=== PATIENT | male | born 1995 | race Hispanic/Latino ===

== ENCOUNTER 2018-12-17 10:41 | Emergency (ER) | payer SELFPAY ==
--- NOTE | 2018-12-17 11:42 | ER ---
Nurse's Notes [facility] Name: Moisés King Age: 23 yrs Sex: Male : 1995 Arrival Date: 12/17/2018 Time: 10:41 Bed 16 Private MD: Diagnosis: Impacted cerumen, bilateral Presentation: 12/17 10:53 Presenting complaint: Patient states: Decreased hearing from right ear for 2 days. aj Denies pain. Transition of care: patient was not received from another setting of care. Onset of symptoms was December 15, 2018. Risk Assessment: Do you want to hurt yourself or someone else? Patient reports no desire to harm self or others. Initial Sepsis Screen: Does the patient meet any 2 criteria? No. Patient's initial sepsis screen is negative. Does the patient have a suspected source of infection? No. Patient's initial sepsis screen is negative. Care prior to arrival: None. 10:53 Method Of Arrival: Ambulatory aj 10:53 Acuity: ANNAMARIA 5 aj Triage Assessment: 10:54 General: Appears in no apparent distress. comfortable, Behavior is calm, cooperative, aj appropriate for age. Pain: Denies pain. EENT: Reports decreased hearing in right ear. Neuro: Level of Consciousness is awake, alert, obeys commands, Oriented to person, place, time, situation, Appropriate for age. Respiratory: Airway is patent Respiratory effort is even, unlabored, Respiratory pattern is regular, symmetrical. Derm: Skin is intact, is healthy with good turgor, Skin is pink, warm \T\ dry. normal. Historical: - Allergies: 10:54 No Known Allergies; aj - Immunization history:: Adult Immunizations up to date. - Social history:: Smoking status: Patient/guardian denies using tobacco. - Ebola Screening: : Patient negative for fever greater than or equal to 101.5 degrees Fahrenheit, and additional compatible Ebola Virus Disease symptoms Patient denies exposure to infectious person Patient denies travel to an Ebola-affected area in the 21 days before illness onset No symptoms or risks identified at this time. Vital Signs: 10:54 BP 150 / 79; Pulse 72; Resp 16; Temp 98.0; Pulse Ox 98% on R/A; Weight 72.57 kg; Height aj 6 ft. 0 in. (182.88 cm); 10:54 Body Mass Index 21.70 (72.57 kg, 182.88 cm) ED Course: 10:41 Patient arrived in ED. as 10:50 [facility]eta [facility]C [facility] snw 10:50 Mauro Mistry MD is Attending Physician. snw 10:53 Ness Silva, RN is Primary Nurse. aj 10:54 Triage completed. aj 10:54 Arm band placed on left wrist. Patient placed in an exam room. aj 11:41 Maryse Bourgeois MD is Referral Physician. snw Administered Medications: No medications were administered Outcome: 11:41 Discharge ordered by . snw 11:52 Patient left the ED. ph Signatures: Ness Silva, RN RN Geeta Keith FNP-C FNP-Csnw Fannie Gupta as Cassandra Farooq, RN RN ph
--- NOTE | 2018-12-17 11:42 | EDPHYS ---
Physician Documentation [facility] Name: Moisés King Age: 23 yrs Sex: Male : 1995 Arrival Date: 12/17/2018 Time: 10:41 Bed 16 Private MD: ED Physician Mauro Mistry HPI: 12/17 11:25 This 23 yrs old Male presents to ER via Ambulatory with complaints of Ear Pain.snw 11:25 The patient presents with hearing loss, partial. The complaints affect the right ear. snw Onset: The symptoms/episode began/occurred gradually, 4 day(s) ago. Associated signs and symptoms: Pertinent positives: sore throat. Severity of symptoms: At their worst the symptoms were mild. The patient has not experienced similar symptoms in the past. The patient has not recently seen a physician. Historical: - Allergies: 10:54 No Known Allergies; aj - Immunization history:: Adult Immunizations up to date. - Social history:: Smoking status: Patient/guardian denies using tobacco. - Ebola Screening: : Patient negative for fever greater than or equal to 101.5 degrees Fahrenheit, and additional compatible Ebola Virus Disease symptoms Patient denies exposure to infectious person Patient denies travel to an Ebola-affected area in the 21 days before illness onset No symptoms or risks identified at this time. ROS: 11:24 Constitutional: Negative for fever, chills, and weight loss, Eyes: Negative for injury, snw pain, redness, and discharge, Neck: Negative for injury, pain, and swelling, Cardiovascular: Negative for chest pain, palpitations, and edema, Respiratory: Negative for shortness of breath, cough, wheezing, and pleuritic chest pain, Abdomen/GI: Negative for abdominal pain, nausea, vomiting, diarrhea, and constipation, Back: Negative for injury and pain, : Negative for injury, bleeding, discharge, and swelling, MS/Extremity: Negative for injury and deformity, Skin: Negative for injury, rash, and discoloration, Neuro: Negative for headache, weakness, numbness, tingling, and seizure. 11:24 ENT: Positive for sore throat, clogged hearing/ears. Exam: 11:24 Constitutional: This is a well developed, well nourished patient who is awake, alert, snw and in no acute distress. Head/Face: Normocephalic, atraumatic. Eyes: Pupils equal round and reactive to light, extra-ocular motions intact. Lids and lashes normal. Conjunctiva and sclera are non-icteric and not injected. Cornea within normal limits. Periorbital areas with no swelling, redness, or edema. Neck: Trachea midline, no thyromegaly or masses palpated, and no cervical lymphadenopathy. Supple, full range of motion without nuchal rigidity, or vertebral point tenderness. No Meningismus. Chest/axilla: Normal chest wall appearance and motion. Nontender with no deformity. No lesions are appreciated. Cardiovascular: Regular rate and rhythm with a normal S1 and S2. No gallops, murmurs, or rubs. Normal PMI, no JVD. No pulse deficits. Respiratory: Lungs have equal breath sounds bilaterally, clear to auscultation and percussion. No rales, rhonchi or wheezes noted. No increased work of breathing, no retractions or nasal flaring. Abdomen/GI: Soft, non-tender, with normal bowel sounds. No distension or tympany. No guarding or rebound. No evidence of tenderness throughout. Back: No spinal tenderness. No costovertebral tenderness. Full range of motion. Skin: Warm, dry with normal turgor. Normal color with no rashes, no lesions, and no evidence of cellulitis. MS/ Extremity: Pulses equal, no cyanosis. Neurovascular intact. Full, normal range of motion. Neuro: Awake and alert, GCS 15, oriented to person, place, time, and situation. Cranial nerves II-XII grossly intact. Motor strength 5/5 in all extremities. Sensory grossly intact. Cerebellar exam normal. Normal gait. Psych: Awake, alert, with orientation to person, place and time. Behavior, mood, and affect are within normal limits. 11:24 ENT: TM's: not visable, because of cerumen, Nose: is normal, Mouth: is normal, Posterior pharynx: erythema, that is mild, Voice: is normal. Vital Signs: 10:54 BP 150 / 79; Pulse 72; Resp 16; Temp 98.0; Pulse Ox 98% on R/A; Weight 72.57 kg; Height aj 6 ft. 0 in. (182.88 cm); 10:54 Body Mass Index 21.70 (72.57 kg, 182.88 cm) [place] MDM: 10:50 Patient medically screened. snw 11:41 Data reviewed: vital signs, nurses notes. Data interpreted: Pulse oximetry: on room air snw is 98 %. Interpretation: normal. Counseling: I had a detailed discussion with the patient and/or guardian regarding: the historical points, exam findings, and any diagnostic results supporting the discharge/admit diagnosis, the presence of at least one elevated blood pressure reading (>120/80) during this emergency department visit, the need for outpatient follow up, to return to the emergency department if symptoms worsen or persist or if there are any questions or concerns that arise at home. Special discussion: I have referred the patient to see his PCP for further evaluation of high blood pressure. Based on the history and exam findings, there is no indication for further emergent testing or inpatient evaluation. I discussed with the patient/guardian the need to see the ENT specialist for further evaluation of the symptoms. I discussed with the patient/guardian the need to see the primary care provider for further evaluation of the symptoms. Administered Medications: No medications were administered Disposition: 12/18 07:41 Co-signature as Attending Physician, Mauro Mistry MD I agree with the assessment and kdr plan of care. Disposition: 12/17/18 11:41 Discharged to Home. Impression: Impacted cerumen, bilateral. - Condition is Stable. - Discharge Instructions: Earwax Buildup, Adult, Hypertension, Pharyngitis, Rehydration, Adult, Ear Irrigation. - Prescriptions for Debrox 6.5 % Otic drops - instill 10 drop by OTIC route 2 times per day; 1 bottle. - Work release form, Medication Reconciliation Form, Thank You Letter, Antibiotic Education, Prescription Opioid Use form. - Follow up: Maryse Bourgeois; When: 1 week; Reason: Recheck today's complaints, Continuance of care. - Problem is new. - Symptoms are unchanged. Signatures: Dispatcher [employer] Ness Bagley, Mauro Lama RN, MD MD [facility] Geeta Khan, [employer]-C [employer]-Csnw Cassandra Farooq RN RN ph Corrections: (The following items were deleted from the chart) 12/17 11:52 11:41 12/17/2018 11:41 Discharged to Home. Impression: Impacted cerumen, bilateral. ph Condition is Stable. Discharge Instructions: Earwax Buildup, Adult, Ear Irrigation, Pharyngitis, Rehydration, Adult. Prescriptions for Debrox 6.5 % Otic drops - instill 10 drop by OTIC route 2 times per day; 1 bottle. and Forms are Work release form, Medication Reconciliation Form, Thank You Letter, Antibiotic Education, Prescription Opioid Use. Follow up: Maryse Bourgeois; When: 1 week; Reason: Recheck today's complaints, Continuance of care. Problem is new. Symptoms are unchanged. snw
== END 2018-12-17 11:52 | disposition home or self-care (01) ==
LOC: ER 10:41
DX: H61.23 Impacted cerumen, bilateral (principal)
CPT/HCPCS: 99281